=== PATIENT | female | born 1975 | race Caucasian/White ===

== ENCOUNTER 2018-04-21 22:39 | Emergency (ER) | payer BC, SELFPAY ==
[2018-04-21 22:40] VITALS: BP 135/62; PULSE 69; RESP 14; TEMP 36.9; O2SAT 100; BMI 29.8
--- NOTE | 2018-04-21 22:43 | EKG12_ITS ---
Test Reason : CP Blood Pressure : / mmHG Vent. Rate : 070 BPM Atrial Rate : 070 BPM P-R Int : 166 ms QRS Dur : 084 ms QT Int : 394 ms P-R-T Axes : 076 043 031 degrees QTc Int : 425 ms Normal sinus rhythm Normal ECG Confirmed by MARQUIS SANTACRUZ MD ([id number]), proposal editor CAMERON ADKINS ([id number]) on 04/24/2018 1:17:42 PM Referred By: HAWA Confirmed By:MARQUIS SANTACRUZ MD
--- NOTE | 2018-04-21 22:50 | RAD_ITS ---
STUDY: X-RAY CHEST REASON FOR EXAM: Female, 42 years old. Chest pain TECHNIQUE: Single AP portable view of the chest. COMPARISON: None. FINDINGS: There are monitoring devices. The lungs are clear and expanded. There is no demonstrated pleural abnormality. Normal size heart. Normal mediastinum and cady. Normal visualized pulmonary arteries. Normal visualized aortic arch and descending thoracic aorta. Normal visualized thoracic spine. Normal visualized ribs, clavicles, and shoulders. There is no demonstrated abnormality of the visualized soft tissue structures of the upper abdomen. RAD/Chest 1 View (Portable) IMPRESSION: Normal x-ray examination of the chest. Electronically Signed: Loc Samuels MD at 23:33 EDT , Service support ,
--- NOTE | 2018-04-21 22:57 | ED.VISSUMM ---
- ER Visit Summary Date of Service: 04/21/18 Chief Complaint: Chest pain, left upper quadrant pain History of Present Illness: The patient is a 42 F presents to the emergency department with midsternal chest pain and left upper quadrant pain. The patient's been having symptoms for the past 24 hours. She states it comes in waves. It will last anywhere from seconds to about 5 minutes. She was mildly nauseated but denies any dyspnea. She states it does not hurt to take a deep breath. She has never had pain like this before. She does have a history of smoking. She takes no daily medications. She denies any history of coronary vascular disease. She denies any history of pulmonary embolus. She does state that it seemed to be made worse with food. She has not taken anything for the pain. Physical Examination: Vital signs reviewed General: Well-nourished, well-developed Head: Normocephalic, atraumatic Eyes: Pupils equal and reactive, extraocular muscles intact Neck, supple, no lymphadenopathy Heart: Regular rate and rhythm Respiratory: No distress, clear bilaterally Abdomen: Soft, nontender, nondistended, no peritoneal signs Back: Nontender Extremities: Nontender, no edema, no cords Skin: Normal color no rash Neuro: Alert and oriented, no focal or lateralizing deficits Test Results: [] Emergency Department Course and Treatment: The patient presents with intermittent stabbing chest pain in her left upper quadrant into her midsternal area. It was worse with food. EKG was obtained on arrival. There was no acute ischemic change. IV was established. Patient was given aspirin. She was given Zofran and Toradol with improvement of her pain. Screening labs including cardiac enzymes are unremarkable. D-dimer was negative. Chest x-ray was also unremarkable. The patient's symptoms do seem more likely GI. She has a heart score of 1. This is only for smoking. She has a normal EKG. She has negative cardiac enzymes. She had improvement of her pain with a GI cocktail. At this time, I do feel that she is safe for outpatient therapy. I am going to prescribe Pepcid and Carafate for symptom control. She is comfortable this plan of care and will be discharged home. Treatment Plan: [] Disposition: Discharge Impression: Atypical chest pain This note was generated with [employer] software. It may contain incorrect words, spelling, and punctuation that were not noted in review of the chart prior to signing ED Disposition - Plan for ED Patient: Chief Complaint: Chest Pain Instructions: ED Chest Pain NonCardiac Prescriptions: Famotidine [Pepcid] 20 mg PO BID #28 tab Sucralfate [Carafate] 1 gm PO 4X/DAY #120 tab Referrals: Jana Durbin, BIJAN-C [Primary Care Provider] -
[2018-04-21] MEDS: Aspirin 81 MG TAB.CHEW 324 MG PO (23:13)
[2018-04-21] MEDS: 0.9% Normal Saline 1,000 ML 1000 ML IV (23:13)
[2018-04-21] MEDS: Ondansetron 4 MG/2 ML Vial IV (23:14)
[2018-04-21] MEDS: Ketorolac 30 MG/ML Syringe IV (23:14)
[2018-04-21 23:18] LABS: Absolute Lymphocyte Count 3.21 X10^3/ul (0.83-4.51); Absolute Neutrophil Count 6.7 X10^3/uL (2.0-7.7); Basophil# 0.04 X10^3/uL; Basophil% 0.4 % (0-1); Differential Indicated SCAN CRITERIA MET; Eosinophil# 0.31 X10^3/uL; Eosinophils% 2.8 % (0-5); Hematocrit 42.1 % (37-47); Hemoglobin 14.3 g/dl (12.0-15.0); Lymphocyte # 3.21 X10^3/ul (4.0); Lymphocyte % 28.9 % (19-41); Mean Corpuscular Hgb 29.9 pg (27.0-32.0); Mean Corpuscular Volume 88.1 fL (81-99); Mean Platelet Vol. 9.5 fl (6.2-12.0); Monocyte# 0.78 X10^3/uL; Neutrophil # 6.74 X10^3/uL (2.7-7.7); Neutrophil % 60.8 % (47-70); POSITIVE COUNT NO; POSITIVE DIFFERENTIAL NO; POSITIVE MORPHOLOGY YES; Platelet Count 321 K/mm3 (150-450); RBC Distribution Width CV 14.2 % (11.6-14.6); RBC Distribution Width SD 45.9 fl (35.1-43.9); Red Blood Count 4.78 M/mm3 (4.2-5.4); White Blood Count 11.1 K/mm3 (4.4-11.0)
[2018-04-21 23:29] LABS: D-Dimer Quantitative (DVT/PE) < 0.27 FEU/ug/m (0.27-0.49)
[2018-04-21 23:34] LABS: Anion Gap 8 (5-15); BUN 11 mg/dL (7-18); BUN/Creat Ratio 15.9 RATIO (10-20); Calcium,Total 8.7 mg/dL (8.5-10.1); Chloride 107 mmol/L (98-107); Creatinine, Serum 0.69 mg/dL (0.55-1.02); EST Glomerular Filtration Rate 98 mL/min (>60); Est Glom Filt Rate - Afr Amer 118 mL/min (>60); Estimated Creatinine Clearance 108.73 ml/min; Glucose 109 mg/dL (74-106); Lipase 105 U/L (73-393); Potassium 3.8 mmol/L (3.5-5.1); Pregnancy, Serum, hCG Quali. NEGATIVE Negative (0-9 Nonpreg); Sodium Level 143 mmol/L (136-145)
[2018-04-21] MEDS: Mag Hydrox/Al Hydrox/Simeth 30 ML UDC PO (23:43)
[2018-04-22 00:27] VITALS: BP 126/64; PULSE 64; PULSE 67; RESP 16; O2SAT 95; O2SAT 96
== END 2018-04-22 00:35 | disposition home or self-care (01) ==
LOC: ED 22:56
PROVIDERS: Emergency Provider Emergency Medicine; Family Provider Nurse Practitioner Family; PCP Nurse Practitioner Family
DX: R07.89 Other chest pain (principal); R10.12 Left upper quadrant pain; Z87.891 Personal history of nicotine dependence
CPT/HCPCS: 71045; 80048; 83690; 84484; 84703; 85025; 85379; 93005; 96361; 96374; 96375; 99285; J7030; A4216; J2405; J3490

== ENCOUNTER 2018-04-23 23:57 | Emergency (ER) | payer BC, SELFPAY ==
[2018-04-23 23:58] VITALS: BP 138/63; PULSE 81; RESP 16; TEMP 36.6; O2SAT 97; BMI 29.5
[2018-04-24 00:38] LABS: Bacteria 0 SEEN /hpf (None Seen); Mucous, Urine 0 SEEN /hpf (<or=2+)
[2018-04-24 00:46] LABS: Absolute Lymphocyte Count 3.22 X10^3/ul (0.83-4.51); Absolute Neutrophil Count 6.9 X10^3/uL (2.0-7.7); Basophil# 0.05 X10^3/uL; Basophil% 0.4 % (0-1); Eosinophils% 2.7 % (0-5); Hematocrit 40.8 % (37-47); Hemoglobin 14.3 g/dl (12.0-15.0); Lymphocyte # 3.22 X10^3/ul (4.0); Lymphocyte % 28.8 % (19-41); Mean Corpuscular Hgb 30.3 pg (27.0-32.0); Mean Corpuscular Volume 86.4 fL (81-99); Mean Platelet Vol. 9.8 fl (6.2-12.0); Monocyte% 6.3 % (0-10); Neutrophil % 61.6 % (47-70); Platelet Count 338 K/mm3 (150-450); RBC Distribution Width SD 44.2 fl (35.1-43.9); Red Blood Count 4.72 M/mm3 (4.2-5.4); White Blood Count 11.2 K/mm3 (4.4-11.0)
[2018-04-24 00:47] LABS: Color, Urine Yellow (Yellow); Glucose, Dipstick Normal (Normal); Ketone-Dipstick Negative (Negative); Leukocyte Esterase-Dipstick 25 /ul (Negative); Nitrite-Dipstick Negative (Negative); Occult Blood-Urine 150 /ul (Negative); Protein-Dipstick Negative (Negative); Urine Bilirubin Dipstick Negative (Negative); Urine Clarity Clear (Clear); Urine Urobilinogen 1 mg/dl (Normal)
[2018-04-24 00:48] LABS: POSITIVE COUNT NO; POSITIVE DIFFERENTIAL NO; POSITIVE MORPHOLOGY YES
[2018-04-24 00:49] LABS: Differential Indicated SCAN CRITERIA MET
[2018-04-24 00:52] LABS: ALB/GLOB Ratio 1.1 RATIO (0.9-2.4); AST(SGOT) 7 U/L (15-37); Alanine Aminotransfer ALT/SGPT 17 U/L (13-56); Albumin, Serum 3.5 g/dL (3.2-5.0); Alkaline Phosphatase 51 U/L (45-117); Anion Gap 8 (5-15); BUN 12 mg/dL (7-18); BUN/Creat Ratio 17.3 RATIO (10-20); Calcium,Total 8.9 mg/dL (8.5-10.1); Chloride 108 mmol/L (98-107); Creatinine, Serum 0.69 mg/dL (0.55-1.02); EST Glomerular Filtration Rate 97 mL/min (>60); Est Glom Filt Rate - Afr Amer 118 mL/min (>60); Estimated Creatinine Clearance 108.73 ml/min; Globulin 3.1 g/dL (2.2-4.2); Glucose 103 mg/dL (74-106); Lipase 96 U/L (73-393); Potassium 3.7 mmol/L (3.5-5.1); Protein, Total 6.6 g/dL (6.4-8.2); Sodium Level 141 mmol/L (136-145)
[2018-04-24] MEDS: Ondansetron 4 MG/2 ML Vial IV (00:53)
[2018-04-24] MEDS: 0.9% Normal Saline 1,000 ML 1000 ML IV (00:53)
[2018-04-24 00:54] LABS: Squamous Epithelial Cells - UA 10-25 SEEN /hpf (5-10)
[2018-04-24 00:55] LABS: Red Blood Cells-Urine 0-5 SEEN /hpf (0-5); White Blood Cells 0-5 SEEN /hpf (0-5)
--- NOTE | 2018-04-24 00:55 | ED.RN ---
PT REFUSED MORPHINE STATING SHE DIDN'T WANT ANYTHING THAT MAKES HER MD KARTHIK AWARE.
--- NOTE | 2018-04-24 01:50 | ED.VISSUMM ---
- ER Visit Summary Date of Service: 04/24/18 Chief Complaint: Left flank pain History of Present Illness: The patient is a 42 F with pain to her left mid back that wraps around to her left side and left upper quadrant. The patient was seen here previously for chest pain and left upper quadrant pain. She had a negative workup including EKG, labs, troponin, d-dimer, and chest x-ray. It was thought that her symptoms are more related to a GI etiology. She was prescribed Pepcid and Carafate. She had no improvement. She saw her doctor earlier in the day as an outpatient. She had laboratory studies and urinalysis performed. She also had a CT of her abdomen and pelvis, and they plan to refer her to GI for endoscopy. She presents today because the pain is increasingly worse. Denies any chest pain or shortness of breath. Denies cough or sputum. Denies fevers. Denies nausea or vomiting. Denies any urinary symptoms. She is a smoker. Physical Examination: Blood pressure 138/63. Otherwise vitals unremarkable. Afebrile. Patient tearful and appears uncomfortable. Heart regular rate and rhythm. Lungs clear throughout. Patient has tenderness to palpation to her left upper quadrant and left flank. No guarding or rebound. No CVA tenderness. No spinal tenderness. Overlying skin appears normal without rash. Test Results: White count 11.2. CMP unremarkable. Lipase normal. Urinalysis shows signs of contamination. Emergency Department Course and Treatment: Patient treated with morphine, Zofran, and IV fluids while awaiting results. I was able to obtain her CT from the outside hospital. This showed no acute abnormalities. She has a fat-containing periumbilical hernia without inflammation. She has some degenerative spinal findings. Nothing acute. I reviewed her most recent visit. She had a negative cardiac workup. Normal d-dimer. Her symptoms today are not consistent with chest pain or ACS. The d-dimer is reassuring. She is overall low risk for PE and dissection, so further testing was not indicated at this point. I reevaluated the patient. She had continued pain. She declined anything stronger for pain. She declined admission for pain control. We talked about her symptoms some more. She is having some urinary hesitancy. I will send a urine culture and treat her with Keflex. She was also treated with Flexeril. She will continue ibuprofen at home. She has only been taking 200 mg per dose. Will increase that to up to 800 mg 3 times a day. She will follow-up with her family doctor and her endoscopist as planned. Return for any new or worsening issues. Treatment Plan: As above Disposition: Discharged Impression: 1. Left flank pain This note was generated with [employer] dictation software. It may contain incorrect words, spelling, and punctuation that were not noted in review of the chart prior to signing ED Disposition - Plan for ED Patient: Chief Complaint: Flank Pain Referrals: Jana Durbin NP-C [Primary Care Provider] -
--- NOTE | 2018-04-24 02:00 | ED.DEP ---
ED Disposition - Plan for ED Patient: Chief Complaint: Flank Pain Instructions: ED Flank Pain Uncertain Cause Prescriptions: Cephalexin [Keflex] 500 mg PO Q6 #28 cap Cyclobenzaprine [Flexeril] 10 mg PO TID PRN #20 tab PRN Reason: Muscle Spasm Referrals: Jana Durbin NP-C [Primary Care Provider] -
[2018-04-24] MEDS: Cephalexin 250 MG Capsule 500 MG PO (02:13)
[2018-04-24 02:18] VITALS: BP 102/56; PULSE 55; RESP 16; O2SAT 96
--- NOTE | 2018-07-06 09:32 | HP.PCM_ITS ---
History and Physical Date of Admission: 07/06/18 HISTORY AND PHYSICAL Art Joseph 07/23/1949 REFERRING PHYSICIAN: Boogie Palmer DO CHIEF COMPLAINT: discuss EGD/peg placement HPI: The patient is a 68 year old male referred for endoscopy. Art notes weight loss and dysphagia to solids and now liquids. 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 The patient is currently scheduled to see thoracic surgery [facility] and has already seen oncology. He'll be starting neoadjuvant treatment. He is not able to tolerate solid food. He can drink approximately 1 can of ensure per day. Dr. Palmer asked if I can place a Dobbhoff tube urgently to maintain his nutrition during his treatment. The patient is being seen by me today at the request of Dr. Palmer for my opinion and advice regarding esophageal cancer need for Dobbhoff feeding placement. PAST MEDICAL HISTORY Diagnosis Date ? DVT, lower extremity 2000 With PE ? Esophageal reflux ? HYPERTROPHY PROSTATE W/O OBST 06/17/2005 ? Impotence of organic origin Impotence ? Migraine ? OA (osteoarthritis) of knee Right--sees Dr. Watson ? Obesity ? Other and unspecified hyperlipidemia ? Other psoriasis and similar disorders Psoriasis ? Snoring ? Unspecified essential hypertension PAST SURGICAL HISTORY Procedure Laterality Date ? LAPROSCOPIC REPAIR UMBILICAL HERNIA 02/17/2018 ? PAST SURGICAL HISTORY OF basal cell cancer nose ? PAST SURGICAL HISTORY OF 2006 Heart ablation ? TOTAL KNEE REPLACEMENT Right ? VASECTOMY 1980 Current Outpatient Prescriptions: esomeprazole (NEXIUM) 40 mg capsule Take twice daily for 2 weeks then take once daily docusate sodium (COLACE) 100 mg capsule Take 1 capsule by mouth once daily. warfarin (COUMADIN) 5 mg tablet Take 7.5mg MWF and 5mg TTSS or as directed Tadalafil (CIALIS) 20 mg tab(s) Take 1 tablet by mouth once daily as needed. As directed. diltiazem CD (CARTIA XT) 180 mg 24 hr capsule Take 1 capsule by mouth once daily. tamsulosin ER (FLOMAX) 0.4 mg cp24 Take 2 capsules by mouth daily at bedtime. THERAPEUTIC MULTIVITAMIN TAB Take one(1) tablet daily. No current facility-administered medications for this visit. ALLERGIES: Aiken [Hydrocodone-Acetaminophen] PERSONAL HISTORY: Social History Marital status: Spouse name: Years of education: Number of children: Social History Main Topics Smoking status: Never Smoker Smokeless tobacco: Current User Types: Chew Comment: chews 1/2 pack daily Alcohol use: Yes Comment: beer Drug use: No FAMILY HISTORY: FAMILY HISTORY Problem Relation Age of Onset ? Hypertension Father ? other (voice box problems) Sister gets botox injections ? Cancer Maternal Grandmother ? Cancer Maternal Grandfather ? other (fall hip fracture) Paternal Grandmother at 91 ? other (old age) Paternal Grandfather REVIEW OF SYMPTOMS: The review of systems data was entered by the nurse and reviewed by me There are no exam notes on file for this visit. PHYSICAL EXAMINATION: General: The patient is 68 year old male, well nourished, well hydrated in no acute distress. The patient is oriented to time, place, and person. VITALS: Weight 89.4 kg (197 lb). Body mass index is 26.35 kg/m?. HEENT: Normal cephalic, ataumatic, pupils are equally round, sclera are anicteric, mucous membranes are moist, oropharynx is clear. Neck has no masses, asymmetry or lymphadenopathy. Thyroid is unremarkable. Respiratory: Clear to auscultation and percussion. Normal respiratory excursion and pattern. Cardiac: Examination is regular rate and rhythm. Abdominal exam: Soft, nontender, with no palpable masses. No hep atosplenomegaly. No palpable hernias. Rectal exam: exam deferred Extremities: no clubbing, cyanosis or edema. No adenopathy. Other: LABORATORY VALUES: As Noted RADIOLOGIC STUDIES: As Noted Assessment IMPRESSION: Esophageal cancer, need for feeding access PLAN: I plan to perform upper endoscopy with Dobbhoff placement. We discussed the risks and benefits of the planned endoscopy. I have informed the patient that complications can occur including failure to complete the endoscopy and perforation. The patient had the opportunity to ask questions concerning the planned endoscopy. My staff has also explained the procedure to the patient in understandable terms and has given the patient printed material concerning the procedure. The patient freely consents to surgery. I plan for monitored anesthetic care. Diagnoses: (R13.10) Esophageal dysphagia (primary encounter diagnosis) (Z79.01) On continuous oral anticoagulation (C15.9) Malignant neoplasm of esophagus, unspecified location (HCC) My findings have been communicated to Dr. Laura Pedraza MD via shared medical record. This note will be forwarded to Dr. Laura Pedraza MD. Return to Clinic: The patient is instructed to follow-up with me after the testing has been completed. Oliverio Lane MD
== END 2018-04-24 02:19 | disposition home or self-care (01) ==
LOC: ED 04-24 00:32
PROVIDERS: Emergency Provider Emergency Medicine; Family Provider Nurse Practitioner Family; PCP Nurse Practitioner Family
DX: R10.9 Unspecified abdominal pain (principal); R39.11 Hesitancy of micturition; K42.9 Umbilical hernia without obstruction or gangrene; K59.00 Constipation, unspecified; K21.9 Gastro-esophageal reflux disease without esophagitis; Z72.0 Tobacco use
CPT/HCPCS: 80053; 81001; 83690; 85025; 87086; 87088; 96361; 96374; 99285; J7030; A4216; J2405

== ENCOUNTER → 2019-07-23 10:18 | Outpatient (CLI) | payer BC, SELFPAY ==
[2019-07-23 10:40] LABS: D-Dimer Quantitative (DVT/PE) 0.32 FEU/ug/m (0.27-0.49)
== END ==
PROVIDERS: Family Provider Nurse Practitioner Family; PCP Nurse Practitioner Family; Referring Provider Family Medicine; Visit Provider Family Medicine
DX: R07.9 Chest pain, unspecified (principal)
CPT/HCPCS: 85379

== ENCOUNTER 2019-07-23 19:26 | Emergency (ER) | payer BC, SELFPAY ==
[2019-07-23 19:27] VITALS: BP 128/74; PULSE 83; RESP 16; TEMP 36.7; O2SAT 98; BMI 29.4
--- NOTE | 2019-07-23 20:01 | ED.VISSUMM ---
- ER Visit Summary Date of Service: 07/23/19 Chief Complaint: Right calf pain History of Present Illness: The patient is a 43 F presenting with right calf pain. This started 2 days ago. She has pain to the medial aspect of her right calf. She had traveled to [place] approximately one month ago. She states she stopped frequently and did not drive straight through. No history of blood clots. 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 Denies chest pain or shortness of breath. Denies injury. Denies other complaints. Physical Examination: Vitals are stable. Patient is afebrile. Alert no acute distress. HEENT exam is unremarkable. Neck is supple. Lungs are clear and equal bilaterally. Heart is regular rate and rhythm. Extremities right medial calf tenderness. Normal distal pulses. No erythema or warmth. Active full range of motion. Skin is warm and dry. No focal neurologic deficit. Remainder of exam is unremarkable. Emergency Department Course and Treatment: Venous Doppler right lower extremity shows normal venous Doppler ultrasound of the lower extremity. Patient is advised to rest ice and elevate. Advised use NSAIDs for pain. Advised to follow-up with primary care physician. Advised return to ED if worsening complaints. Disposition: Discharge home Impression: Right lower extremity pain This note was generated with [employer] dictation software. It may contain incorrect words, spelling, and punctuation that were not noted in review of the chart prior to signing ED Disposition - Plan for ED Patient: Instructions: MUSCLE STRAIN, Extremity Referrals: Jana Durbin NP-C [NON-STAFF] -
--- NOTE | 2019-07-23 20:04 | US_ITS ---
STUDY: VENOUS DOPPLER ULTRASOUND - RIGHT LOWER EXTREMITY REASON FOR EXAM: Female, 43 years old. Right medial calf pain TECHNIQUE: Ultrasound evaluation of the deep vein system to include crowder-scale imaging and compression was performed. Crowder-scale imaging and Doppler sonographic evaluation, including duplex spectral analysis and qualitative color flow sonography, was performed. COMPARISON: None. FINDINGS: Common Femoral Vein: Normal compression, spontaneity and augmentation. Normal color Doppler. Common Femoral Vein/Greater Saphenous Junction: Normal compression, spontaneity and augmentation. Normal color Doppler. Deep Femoral Vein: Normal compression, spontaneity and augmentation. Normal color Doppler. Femoral Proximal: Normal compression, spontaneity and augmentation. Normal color Doppler. Femoral Middle: Normal compression, spontaneity and augmentation. Normal color Doppler. Femoral Distal: Normal compression, spontaneity and augmentation. Normal color Doppler. Popliteal Vein: Normal compression, spontaneity and augmentation. Normal color Doppler. Posterior Tibial Vein: Normal compression, spontaneity and augmentation. Normal color Doppler. Peroneal Vein: Normal compression, spontaneity and augmentation. Normal color Doppler. US/Venous Duplex Imag/Limited/Uni IMPRESSION: Normal venous Doppler ultrasound of the lower extremity. Electronically Signed: Job Lock DO at 20:36 EST Tel , Service support ,
--- NOTE | 2019-07-23 20:56 | ED.DEP ---
ED Disposition - Plan for ED Patient: Instructions: MUSCLE STRAIN, Extremity Referrals: Jana Durbin NP-C [NON-STAFF] -
[2019-07-23 20:58] VITALS: RESP 16
== END 2019-07-23 21:02 | disposition home or self-care (01) ==
LOC: ED 20:06
PROVIDERS: Emergency Provider Emergency Medicine; Family Provider Family Medicine; PCP Family Medicine
DX: M79.661 Pain in right lower leg (principal); Z85.44 Personal history of malignant neoplasm of other female genital organs; Z72.0 Tobacco use
CPT/HCPCS: 93971; 99282

== ENCOUNTER 2022-06-01 10:03 | Emergency (ER) | payer BC, SELFPAY ==
[2022-06-01 10:05] VITALS: BP 124/79; PULSE 77; RESP 18; TEMP 36.3; O2SAT 93; BMI 30.4
--- NOTE | 2022-06-01 10:18 | VDLE_ITS ---
Reason For Study: pain RIGHT LEFT GSV is normal. CFV is compressible, spontaneous, phasic, CFV is compressible, spontaneous, phasic, competent, and demonstrates normal competent and demonstrates normal augmentation. augmentation. FV is compressible, spontaneous, phasic, competent and demonstrates normal augmentation. POP V is compressible, spontaneous, phasic, competent and demonstrates normal augmentation. T/P Trunk is compressible. PTV is compressible. RT PerV is compressible. Procedure This is a venous duplex using B-mode, color flow and spectral Doppler. Exam performed portable in ED. The exam was diagnostic. A preliminary report was called and/or faxed to Dr. Valladares. VL/Venous Duplex US, Unilateral Interpretation Summary Deep veins of the right lower extremity are patent and compressible segmentally . There is no evidence of right lower extremity deep vein thrombosis. The right great sapheno us vein appears patent and compressible segmentally. Ordering Physician: Angel Valladares Performed By: Josef Redding RVT
--- NOTE | 2022-06-01 10:21 | EDS_ITS ---
HPI History of Present Illness Chief Complaint: Lower Extremity Injury Narrative Narrative: 46-year-old female with right leg pain since yesterday. She describes it is just above the right knee extending into the popliteal region. She states she has previous surgery on the right lower extremity secondary to vulvar cancer and had lymph nodes removed. Since that time she developed varicosities in the right leg. She also admits to a more sedentary job and when she sits for 12 to 14 hours a day. She does not have a history of DVT/PE. Coagulation. No active cancer. No recent travel [facility] Medical History (Updated 06/01/22 @ 10:13 by Juana Purcell) Heartburn Home Medications hrsiwzylw-mgr-zixk fumarate 18 mg-FA 600 mcg-vit K 40 mcg capsule 1 ea PO DAILY 07/23/19 [History Last Taken Unknown] omeprazole 40 mg capsule,delayed release 40 mg PO DAILY heartburn 07/23/19 [History Last Taken Unknown] Allergy/AdvReac Type Severity Reaction Status Date / Time adhesive AdvReac Rash Verified 06/01/22 10:04 Social History Smoking Status: Current every day smoker tobacco type: cigarettes EXAM Physical Exam Const Vital Signs: 06/01/22 10:05 Temperature 97.4 F L Temperature Source Temporal Pulse Rate 77 Respiratory Rate 18 Blood Pressure 124/79 H Blood Pressure Mean 94 Pulse Ox 93 Oxygen Delivery Method Room Air MDM MDM MDM Narrative Medical decision making narrative: Patient presenting with right leg pain above and behind the right knee. No history of DVT/PE. She is concerned because he had recent surgical removal of lymph nodes in the right leg and varicosities. No chest pain or shortness of breath. I did obtain a DVT study of the right lower extremity and this is negative for acute DVT or other concerning pathology. Patient counseled on findings and is amenable discharge home. She does not want any analgesia. Patient to follow-up with PCP to ensure resolution. Impression: 1. Right leg pain 2. Muscle strain Lab Data Attestation: I reviewed the patient's lab results. Discharge Plan Triage Chief Complaint: Lower Extremity Injury ED Provider: Angel Valladares Dx/Rx/DC Orders Instructions: ED Muscle Strain, Extremity Prescriptions: No Action omeprazole 40 MG capsule,delayed release(DR/EC) 40 mg PO DAILY fmtbkufgqjze-oiw-gbsu-FA-vit K 1 EACH capsule 1 ea PO DAILY Primary Care Provider: Mando Parry Referrals: Mando Parry MD [Primary Care Provider] - Disposition Disposition: Home, Self Care
== END 2022-06-01 11:41 | disposition home or self-care (01) ==
PROVIDERS: Emergency Provider Student in an Organized Health Care Education/Training Program; PCP Family Medicine; Visit Provider Student in an Organized Health Care Education/Training Program
DX: S86.911A Strain of unspecified muscle(s) and tendon(s) at lower leg level, right leg, initial encounter (principal); M79.604 Pain in right leg; F17.210 Nicotine dependence, cigarettes, uncomplicated; I83.91 Asymptomatic varicose veins of right lower extremity; X58.XXXA Exposure to other specified factors, initial encounter
CPT/HCPCS: 93971; 99282